=== PATIENT | female | born 1945 | race Caucasian/White ===

== ENCOUNTER 2018-10-09 13:18 | Inpatient (IN) ==
--- NOTE | 2018-10-09 14:20 | EKG Report ---
Test Performed on : 10/09/2018 1:37:23 PM Test Reason : confusion Blood Pressure : / mmHG Vent. Rate : 076 BPM Atrial Rate : 076 BPM P-R Int : 162 ms QRS Dur : 084 ms QT Int : 374 ms P-R-T Axes : 065 038 043 degrees QTc Int : 420 ms Normal sinus rhythm. Normal ECG No previous ECGs available Unconfirmed Result
[2018-10-09 14:32] LABS: BASO# 0.03 X1000 (0.0-0.2); BASO% 0.3 % (0.0-0.8); EOS# 0.01 X1000 (0.0-0.7); EOS% 0.1 % (0.0-10.0); HEMATOCRIT 42.3 % (37.0-47.0); IMM GRAN# 0.02 X1000 (0.0-0.04); IMM GRAN% 0.2 % (0.0-0.5); LYMPH# 2.19 X1000 (1.2-3.4); LYMPH% 21.1 % (20.5-51.1); MCHC 33.1 g/dL (33-37); MCV 87.6 FL (81-99); MONO# 0.69 X1000 (0.11-0.59); MONO% 6.6 % (1.7-9.3); MPV 9.9 FL (7.4-10.4); NEUT# 7.46 X1000 (1.4-6.5); NEUT% 71.7 % (42.2-75.2); PLT 345 X1000 (130-400); RBC 4.83 XMIL (4.2-5.4); RDW 12.4 % (11.5-14.5)
--- NOTE | 2018-10-09 14:51 | Diag Imaging Result Doc PS360 ---
EXAM: CT HEAD W/O CONTRAST 10/09/2018 HISTORY: AMS TECHNIQUE: This exam was performed using automated exposure control, adjustment of mA or kV according to patient size, and/or use of iterative reconstruction technique. COMMENT: There is apparent vasogenic edema in the posterior hemispheres bilaterally but particularly in the posterior parietal lobe on the right which may be associated with a rounded ringlike lesion best seen on image 26 and measuring 16 mm in diameter. This may represent metastatic disease and further evaluation with contrast-enhanced CT and/or MRI is recommended. IMPRESSION: Probable metastatic disease. Electronically signed by Francisco King 10/09/2018 2:49 PM
--- NOTE | 2018-10-09 14:56 | Diag Imaging Result Doc PS360 ---
EXAM: CHEST-2 VIEWS 10/09/2018 HISTORY: confusion TECHNIQUE: AP and lateral chest COMMENT: There is apparent blunting of the posterior right costophrenic angle. The lungs appear to be clear and the heart and pulmonary vascularity are within normal limits. The regional skeleton appears to be intact. IMPRESSION: Questionable right pleural effusion. Otherwise no evidence of acute disease. Electronically signed by Francisco King 10/09/2018 2:53 PM
[2018-10-09 15:00] LABS: AGAP 13; ALB/GLOB RATIO 1.4; ALBUMIN 4.1 g/dL (3.5-5.0); ALKALINE PHOSPHATASE 62 U/L (32-104); BUN 15 mg/dL (8-22); CALCIUM 8.8 mg/dL (8.8-10.2); CHLORIDE 96 mmol/L (98-107); COSMO 273; CREATININE 0.8 mg/dL (0.5-0.9); ESTIMATED GFR > 60; GLUCOSE 102 mg/dL (70-104); GOT 14 U/L (10-30); GPT 10 U/L (10-36); POTASSIUM 4.1 mmol/L (3.5-5.1); SODIUM 136 mmol/L (136-145); TCO2 27 mmol/L (25-35); TOTAL BILIRUBIN 0.55 mg/dL (0.20-1.00)
[2018-10-09 15:53] LABS: URINE SOURCE CLEAN CATCH
[2018-10-09 15:59] LABS: BILIRUBIN URINE NEGATIVE (NEGATIVE); BLOOD URINE NEGATIVE (NEGATIVE); COLOR YELLOW; GLUCOSE URINE NEGATIVE (NEGATIVE); KETONE URINE 10 mg/dL (NEGATIVE); LEUKOCYTES URINE SMALL (NEGATIVE); NITRITE URINE NEGATIVE (NEGATIVE); PH URINE 6.5; PROTEIN URINE TRACE mg/dL (NEGATIVE); SP GRAVITY URINE 1.024; TURBIDITY URINE CLEAR (CLEAR); UR EPITHELIAL CELLS <10 /HPF (<10); URINE BACTERIA NEGATIVE /HPF; URINE RBC <10 /HPF (<10); URINE WBC <10 /HPF (<10); UROBILINOGEN URINE NORMAL (NORMAL)
[2018-10-09 16:15] LABS: UR AMPHETAMINES QUAL NONE DETECTED (NONE DETECT); UR BARBITUATES QUAL NONE DETECTED (NONE DETECT); UR BENZODIAZEPIN QUAL NONE DETECTED (NONE DETECT); UR CANNABINOIDS QUAL NONE DETECTED (NONE DETECT); UR COCAINE QUAL NONE DETECTED (NONE DETECT); UR METHADONE QUAL NONE DETECTED (NONE DETECT); UR OPIATES QUAL NONE DETECTED (NONE DETECT); UR OXYCODONE QUAL NONE DETECTED (NONE DETECT); UR PCP QUAL NONE DETECTED (NONE DETECT)
--- NOTE | 2018-10-09 16:23 | PROVIDER DOCUMENTATION ---
This chart was entered by Miladis Barreto Scribe, acting as scribe for Deep Parker MD. HPI-Neurological Disorder - General Chief Complaint: Altered Mental Status Stated Complaint: CONFUSED,BALL,LEFT FOOT NUMB Time Seen by Provider: 10/09/18 13:26 Source: patient, family (sisters and daughter at bedside) Allergies/Adverse Reactions: Patient Allergies Allergy/AdvReac Type Severity Reaction Status Date / Time No Known Allergies Allergy Verified 10/09/18 14:22 Home Medications: Home Medication List Medication Instructions Recorded Confirmed Last Taken Type NK [No Home Medications] 10/09/18 10/09/18 Unknown History - History of Present Illness-Neuro Nature of Presenting Problem: 73 yowf presents to the ed with multiple complaints. pt sts 1 week she has noted a BALL and confusion when trying to drive home from work some days. pt sts once she found her way home, her home looked unfamiliar to her. for about 3 weeks pt has had a sinus infection with sob, fever/chills thoracic back pain and left foot numbness which sometimes drags with ambulation. pt on exam is soft spoken and has no confusion now. pt sts confusion is mostly when driving or locations like home. pt stills knows herself and family at all times. Headache Location: reports: occipital, parietal Onset/Duration: reports: 1 week ago Timing: reports: gone now, intermittent Context: reports: fever, other (confusion while driving). denies: impaired speech, facial droop Character of Altered Mental Status: reports: disoriented, confused Any recent trauma/injury?: reports: none Character of Deficits: reports: new weakness (left foot) New weakness or altered sensation location:: reports: other (left foot numbness and mild weakness) Cognitive Baseline: alert, oriented x3 Gait Baseline: uses a cane Associated Symptoms: reports: short of breath, headache, confusion, neck/back pain (neck pain), fatigue, numbness in legs/feet (left foot), weakness (left foot), other (thoracic back pain and neck pain). denies: fainting, dizziness, chest pain, slurred speech Similar Symptoms Previously?: No Recently seen or treated by another doctor?: No Review of Systems - Adult - REVIEW OF SYSTEMS - ADULT Constitutional: reports: see HPI, chills, fever, fatique Eyes: reports: no symptoms reported Ears, Nose, Mouth & Throat: reports: no symptoms reported Cardiovascular: denies: chest pain, palpitations, syncope Respiratory: denies: cough, pleurisy, shortness of breath, wheezing Gastrointestinal: denies: abdominal pain, diarrhea, nausea, vomiting Genitourinary: reports: no symptoms reported Musculoskeletal: reports: see HPI, back pain (thoracic), neck pain Integumentary: reports: no symptoms reported Neurological: reports: see HPI, headache/migraines, numbness (left foot), other (confusion). denies: ataxia, dizziness/vertigo, seizure, slurred speech Psychiatric: reports: no symptoms reported Endocrine: reports: no symptoms reported Hematologic/Lymphatic: reports: no symptoms reported Allergic/Immunologic: reports: no symptoms reported All Other Systems: Reviewed and Negative Past History - Adult - PAST MEDICAL HISTORY-ADULT Review of Records: reports: Old Records Reviewed, Nursing Assessment Review, Medications Reviewed, Social history reviewed & non-contributory. Major Childhood Illnesses: reports: denies history Cardiovascular: reports: denies history Respiratory: reports: denies history Gastrointestinal: reports: denies history Obstetrical/Gynecological: reports: denies history Genitourinary: reports: denies history Musculoskeletal: reports: denies history Hand Dominance: Right Handed Neurological: reports: denies history Psychiatric: reports: denies history Endocrine/Immune: reports: denies history Other Conditions: reports: denies history - PRIOR SURGERIES/PROCEDURES Surgical/Procedure History: reports: hysterectomy - IMMUNIZATION STATUS Childhood Immunizations: See Nurse Assessment Flu Vaccine: See Nurse Assessment - FAMILY HISTORY Family History: reviewed, not pertinent - SOCIAL HISTORY Smoking: quit greater than 1 year Substance Use: none/never Alcohol Use Frequency: never Living Situation: family Physical Exam- Neurological - Physical Exam-Neuro Initial Vital Signs Reviewed: Yes General Appearance: appears well, alert, no apparent distress Eye Exam: bilateral eye: normal inspection, PERRL, EOMI HENMT: moist mucous membranes, normal ENT inspection Head Injury: no evidence of injury Neck: non-tender, full range of motion, supple, normal inspection Respiratory: chest non-tender, lungs clear, normal breath sounds Cardiovascular: normal peripheral pulses, regular rate, rhythm Abdominal Exam: normal bowel sounds, non tender, soft Lymphatic: no adenopathy Extremity: normal range of motion, non-tender, normal gait, normal inspection, no pedal edema, no calf tenderness, normal capillary refill, other (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 negative: aphasia, facial droop Integumentary: normal color, normal turgor, warm/dry Psych/Mental Status: normal mood/affect, normal thought content, normal thought process, oriented x 3 - Glascow Coma Scale Best Eye Response: (4) open spontaneously Best Verbal Response: (5) oriented Best Motor Response: (6) obeys commands Total Glascow Score: 15 Progress - PLAN OF CARE/RESULTS Progress/Plan/Lab Results: Vital Signs - 8 hr 10/09/18 13:20 10/09/18 13:39 10/09/18 13:40 Temperature 98.8 F Pulse Rate 85 75 77 Respiratory Rate 18 25 H 22 Blood Pressure 158/90 O2 Sat by Pulse Oximetry 95 97 10/09/18 13:48 10/09/18 13:50 10/09/18 14:00 Temperature Pulse Rate 79 75 77 Respiratory Rate 15 21 19 Blood Pressure 151/92 O2 Sat by Pulse Oximetry 97 98 95 10/09/18 14:03 10/09/18 14:10 10/09/18 14:50 Temperature Pulse Rate 75 75 74 Respiratory Rate 22 21 16 Blood Pressure 133/82 O2 Sat by Pulse Oximetry 97 98 96 10/09/18 15:00 10/09/18 15:13 Temperature Pulse Rate 78 Respiratory Rate 16 Blood Pressure 133/82 O2 Sat by Pulse Oximetry 97 Laboratory Results - last 24 hr 10/09/18 10/09/18 10/09/18 13:46 14:19 14:19 WBC 10.40 RBC 4.83 Hgb 14.0 Hct 42.3 MCV 87.6 MCH 29.0 MCHC 33.1 RDW Std Deviation 12.4 Plt Count 345 MPV 9.9 Immature Gran % (Auto) 0.2 Neut % (Auto) 71.7 Lymph % (Auto) 21.1 Pettis % (Auto) 6.6 Eos % (Auto) 0.1 Baso % (Auto) 0.3 Immature Gran # (Auto) 0.02 Neut # (Auto) 7.46 H Lymph # (Auto) 2.19 Pettis # (Auto) 0.69 H Eos # (Auto) 0.01 Baso # (Auto) 0.03 Sodium 136 Potassium 4.1 Chloride 96 L Carbon Dioxide 27 Anion Gap 13 BUN 15 Creatinine 0.8 Estimated GFR/1.73 m2 > 60 BUN/Creatinine Ratio 19 Glucose 102 POC Glucose 94 Calculated Osmolality 273 Calcium 8.8 Total Bilirubin 0.55 AST 14 ALT 10 Alkaline Phosphatase 62 Total Protein 7.0 Albumin 4.1 Globulin 2.9 Albumin/Globulin Ratio 1.4 Urine Source Urine Color Urine Turbidity Urine pH Ur Specific Williams Urine Protein Ur Glucose (Stick) Ur Ketones (Stick) Urine Blood Urine Nitrite Urine Bilirubin Urobilinogen Dipstick Urine Leukocytes Urine WBC (Auto) Urine RBC (Auto) U Epithel Cells (Auto) Urine Bacteria (Auto) Urine Opiates Screen Ur Oxycodone Screen Ur Methadone, Qual Ur Barbiturates Screen Ur Phencyclidine Scrn Ur Amphetamines Screen U Benzodiazepines Scrn Urine Cocaine Screen U Cannabinoids Screen 10/09/18 10/09/18 15:33 15:33 WBC RBC Hgb Hct MCV MCH MCHC RDW Std Deviation Plt Count MPV Immature Gran % (Auto) Neut % (Auto) Lymph % (Auto) Pettis % (Auto) Eos % (Auto) Baso % (Auto) Immature Gran # (Auto) Neut # (Auto) Lymph # (Auto) Pettis # (Auto) Eos # (Auto) Baso # (Auto) Sodium Potassium Chloride Carbon Dioxide Anion Gap BUN Creatinine Estimated GFR/1.73 m2 BUN/Creatinine Ratio Glucose POC Glucose Calculated Osmolality Calcium Total Bilirubin AST ALT Alkaline Phosphatase Total Protein Albumin Globulin Albumin/Globulin Ratio Urine Source CLEAN CATCH Urine Color YELLOW Urine Turbidity CLEAR Urine pH 6.5 Ur Specific Williams 1.024 Urine Protein TRACE A Ur Glucose (Stick) NEGATIVE Ur Ketones (Stick) 10 A Urine Blood NEGATIVE Urine Nitrite NEGATIVE Urine Bilirubin NEGATIVE Urobilinogen Dipstick NORMAL Urine Leukocytes SMALL A Urine WBC (Auto) <10 Urine RBC (Auto) <10 U Epithel Cells (Auto) <10 Urine Bacteria (Auto) NEGATIVE Urine Opiates Screen NONE DETECTED Ur Oxycodone Screen NONE DETECTED Ur Methadone, Qual NONE DETECTED Ur Barbiturates Screen NONE DETECTED Ur Phencyclidine Scrn NONE DETECTED Ur Amphetamines Screen NONE DETECTED U Benzodiazepines Scrn NONE DETECTED Urine Cocaine Screen NONE DETECTED U Cannabinoids Screen NONE DETECTED Orders Category Date Time Status Nursing- Obtain EKG ONCE Care 10/09/18 14:10 Active CHEST-2 VIEWS [RAD] Stat Exams 10/09/18 14:[address] HEAD W/O CONTRAST [CT] Stat Exams 10/09/18 13:39 Completed CBC WITH DIFF [HEME] Stat Lab 10/09/18 14:19 Completed COMPREHENSIVE METABOLIC PANEL [CHEM] Stat Lab 10/09/18 14:19 Completed URINALYSIS W/POSS RFLX CULT [URINALYSIS] Stat Lab 10/09/18 15:33 Completed URINE CULTURE [RM] Routine Lab 10/09/18 16:13 Received URINE DRUG SCREEN Stat Lab 10/09/18 15:33 Completed EKG [EKG] Stat Ther 10/09/18 14:10 Draft Result Diagrams: 10/09/18 14:19 10/09/18 14:19 - REASSESSMENT Reassessment #1 Time Reassessed: 15:05 (pt is resting in bed with family at [facility]) Status: unchanged Reassessment Comment: dr parker is speaking woith pt and family - EKG 1 Time of EKG reading by physician:: 13:37 EKG Read and Signed by:: Deep Parker EKG Interpretation (*Must complete 3 of following elements*): Normal Rate: 76 Rhythm: nsr [place]: normal QRS: normal MI Interval: normal ST Wave: normal - XRAY 1 XRAY: Bilateral XRAY Study: Chest Impression: See EMR Report (EXAM: CHEST-2 VIEWS 10/09/2018 HISTORY: confusion TECHNIQUE: AP and lateral chest COMMENT: There is apparent blunting of the posterior right costophrenic angle. The lungs appear to be clear and the heart and pulmonary vascularity are within normal limits. The regional skeleton appears to be intact. IMPRESSION: Questionable right pleural effusion. Otherwise no evidence of acute disease. Electronically signed by Francisco King 10/09/2018 2:53 PM 10/09/18 [id number] Interpreting Physician: Francisco King MD Dictated Date/Time: 10/09/18 1452 cc: Deep Parker MD; None,PCP) - CT/MRI 1 CT Study: Head Impression: See EMR Report (EXAM: CT HEAD W/O CONTRAST 10/09/2018 HISTORY: AMS TECHNIQUE: This exam was performed using automated exposure control, adjustment of mA or kV according to patient size, and/or use of iterative reconstruction technique. COMMENT: There is apparent vasogenic edema in the posterior hemispheres bilaterally but particularly in the posterior parietal lobe on the right which may be associated with a rounded ringlike lesion best seen on image 26 and measuring 16 mm in diameter. This may represent metastatic disease and fu rther evaluation with contrast-enhanced CT and/or MRI is recommended. IMPRESSION: Probable metastatic disease. Electronically signed by Francisco King 10/09/2018 2:49 PM 10/09/18 1449 Interpreting Physician: Francisco King MD Dictated Date/Time: 10/09/18 1447 cc: Deep Parker MD; Sarmad Lanier MD) - CONSULTS/PCP/HOSPITALIST Notification #1 *Consult/PCP/Hospitalist*: [employer] with hospitalist-[facility] Time Discussed: 16:21 Reason/Comments: lesion on brain with confusion Consult Disposition: Admit Departure - Departure Date of Disposition Decision: 10/09/18 Time of Disposition Decision: 16:00 DIAGNOSIS: Metastatic cancer to brain Disposition: ADMITTED INPATIENT 09 Certified Medical Emergency: Emergent Condition: Stable Referrals and Follow-Ups: Sarmad Lanier MD [ACTIVE STAFF PHYSICIAN] - - Critical Care Note This patient required my direct & personal management of CC.: No Attestation - Physician/ IRVIN Attestation Patient care was provided by Advanced Practice Provider:: No The physician spent face to face time with patient:: Yes Advanced Practice Provider documentation review:: Supervising physician onsite and consulted in the evaluation and care of this patient. The physician did have a face to face encounter with the patient. - NIH Stroke Scale NIH Type: Initial Evaluation Level of Consciousness: 0-Alert LOC Questions (ask month and age): 0-Answers Both Correctly LOC Commands (ask to open & close eyes;make a fist, let go): 0-Obeys Both Cor rectly Best Gaze (horizontal eye movement): 0-Normal Visual (use finger movement, counting or visual threat): 0-No Visual Loss Facial Palsy (show teeth or raise eyebrows & close eyes tght: 0-Symmetrical Movement Motor Function-left arm: 0-Normal Motor Function-right arm: 0-Normal Motor Function-left le-Normal Motor Function-right le-Normal Limb Ataxia(iendya-rnfp-hkadvn, or heel to metcalf): 0-No Ataxia Sensory(pin prick to face,arms,trunk,legs-compare side/side): 0-No Ataxia Best Language(name item/read sentence.Ex-Down to Earth): 0-No Aphasia Dysarthria(Pt read words or say words Ex.Mama,Tip-Top,Thanks: 0-Normal Articulation Modified Crosby Score Criteria: 1-no significant disability despite symptoms This chart was documented by the indicated scribe, (Miladis Barreto Scribe) and accurately reflects the services I performed and decisions made by me, Deep Parker MD, as attested by the provider's signature.
[2018-10-09] MEDS ORDERED: MORPHINE IV ONE (16:56)
[2018-10-09] MEDS ORDERED: ZOFRAN IV PRN (17:37)
[2018-10-09] MEDS ORDERED: MORPHINE IV PRN (17:41)
[2018-10-09] MEDS ORDERED: DECADRON IV ONE (18:22)
--- NOTE | 2018-10-09 18:43 | HISTORY AND PHYSICAL ---
PRIMARY CARE PHYSICIAN: None. CHIEF COMPLAINT: Altered mental status and left leg weakness. HISTORY OF PRESENT ILLNESS: Ms. Harrison is a 73-year-old female who states that yesterday on her way home, she became disoriented and got lost while driving. She states she has been having headaches and left foot weakness. States she has been very unsteady and dizzy, feels like she is going to lose her balance. The patient admits that 3 weeks ago she was treated for a sinus infection by a nurse practitioner for Dr. Prescott at [facility]. They did a chest x-ray, and the chest x-ray did not show pneumonia; however, they did a CT scan and it did show pneumonia. The patient was at that time having severe temperatures for 8 days, body aches and nasal symptoms. They prescribed her cefdinir at that time. She took the medication; however, she did develop a rash across her chest area and under the breast while on the medication. The patient states she thought this was from her fevers. The patient states that these headaches, dizziness and loss of balance started 2 days ago. The patient is complaining of headache at the present time and the nurse in ER gave the patient morphine for the headache. The patient denies any dizziness, nausea or vomiting at present time. Denies any other pain at present time. No other symptoms are noted. PAST MEDICAL HISTORY: The patient denies any past medical history. PAST SURGICAL HISTORY: Hysterectomy. FAMILY HISTORY: Mother from a malignant brain tumor. Father at the age of 58 from an AR. SOCIAL HISTORY: The patient lives in the [place] area. 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 She states that she quit smoking 13 months ago. She denies any alcohol or drug abuse. ALLERGIES: Cefdinir. MEDICATIONS: Aspirin 81 mg p.o. daily. LABORATORY DATA: White blood cell count 10.4, hemoglobin 14.0, hematocrit 42.3, platelet count 345,000. Sodium 136, potassium 4.1, chloride 96, carbon dioxide 27, BUN 15, creatinine 0.8, estimated GFR is greater than 60, glucose is 102, calcium 8.8, bilirubin 0.55, AST 14, ALT 10. Urinalysis performed showed trace amount of protein, small amount of ketones and a small amount of leukocytes. Urine drug screen is negative. DIAGNOSTIC DATA: Chest x-ray performed showed questionable right pleural effusion, otherwise there is no evidence of acute disease. Head CT was performed and showed a ring-like lesion. This may represent metastatic disease, and further evaluation with MRI is recommended. REVIEW OF SYSTEMS: Twelve-point review of systems was performed. All are negative except what is stated above in HPI. PHYSICAL EXAMINATION: VITAL SIGNS: Temperature 98.8 degrees, pulse rate 79, blood pressure 133/82, O2 saturation 97% on room air. Respiratory rate 22. GENERAL: This is a 73-year-old very pleasant female who is well nourished and well developed, in no acute distress at the present time, lying on the ER stretcher. HEENT: Atraumatic, normocephalic. Pupils equal, round and reactive to light. Mucous membranes are moist. No dentition. NECK: Supple. No lymphadenopathy. Trachea is midline. No JVD. CARDIOVASCULAR: Regular rate and rhythm. No murmurs, gallops or rubs appreciated. RESPIRATORY: Lung sounds are clear, with equal chest excursion. Respirations are nonlabored, with no accessory muscle usage. GASTROINTESTINAL: Abdomen is soft, nontender, nondistended. Bowel sounds are present x4. NEUROLOGIC: The patient is awake, alert and oriented x4. Cranial nerves intact. Follows all commands. Moves all extremities. MUSCULOSKELETAL: Full distal strength noted. No deformities or abnormalities. EXTREMITIES: No clubbing, cyanosis or edema noted. DP and PT pulses are present and palpable. SKIN: Warm, dry, and intact. No rashes or bruises. Diaphoresis noted. ASSESSMENT: 1. Altered mental status. 2. 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 3. Left leg weakness. 4. Headaches. PLAN: We will admit this patient to the medical floor. We will perform a CT of the chest, abdomen and pelvis with contrast. We will perform an MRI of the brain. Repeat labs in the a.m. Treat her pain with prn pain medications. Start this patient on a regular diet and observe this patient closely with reed cleaner. Dictated by NICHOLAS Levy for Stephen Rodriguez MD cc: Stephen Rodriguez MD [facility]
--- NOTE | 2018-10-09 18:56 | HISTORY AND PHYSICAL ---
ADDENDUM REPORT: I saw Ms. Harrison today in the emergency room. Two sisters and a daughter were at the bedside at the time of the encounter Ms. Harrison presents because of some memory impairment and frequent disorientation, which acutely got worse yesterday when she finished work. She could not first of all get her way back home, and when she did she could not recognize the surrounding houses at her neighborhood. Ms. Harrison also has been complaining of subacute headaches. They are usually worse early in the morning. She also says that occasionally during the day when she stands up it gets worse. She was treated for sinusitis about 1 week ago. However, the pain continues. She also refers that the left leg has been dragging lately. Upon presentation, she was evaluated in the emergency room. So far, her labs look fine, both CBC and chemistry. A CT scan of the head shows probable metastatic disease. The chest x-ray was unremarkable. On the physical exam, she does have a remarkable left-side hemiparesis with a power of about 4- both up and down while the right side is normal. Sensation to pinprick is also slightly reduced on the left side. The patient has Babinski positive with the big toe upgoing on the left side and reflexes seem to be mildly exaggerated on the left side as well. ASSESSMENT AND PLAN: 1. Right-sided brain mass associated with vasogenic edema. This is concerning for a malignancy. We are going to start the patient on 10 mg of IV Decadron and stat and then 4 mg every 6 hours. We will get will get a CT scan of the chest, abdomen, and pelvis to rule out any primary source. We will get both Neurology and Hematology/Oncology to evaluate the patient as well. 2. 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 3. Remote history of tobacco use. Patient stopped smoking about 1 year ago. For now, we are going to do a CT scan of the chest, abdomen, and pelvis with contrast to look for a primary source of the possible malignancy. We will also get an MRI of the brain tomorrow. We will start the patient on Decadron. We will observe her for seizure precautions, and we will get subspecialties (Neurology and Oncology) to see her. Please refer to the details of the History and Physical, which have been dictated in the chart. cc: Stephen Rodriguez MD MTDD
--- NOTE | 2018-10-09 19:46 | Diag Imaging Result Doc PS360 ---
EXAM: CT THORAX/ABD/PELVIS W/CON 10/09/2018 HISTORY: brain lesion with possible mets TECHNIQUE: This exam was performed using automated exposure control, adjustment of mA or kV according to patient size, and/or use of iterative reconstruction technique. COMMENT: Thorax: There is atelectasis or fibrosis in the posterior costophrenic sulci posteriorly bilaterally. There is apical pleural thickening bilaterally. There are calcified nodes in the subcarina. There is a hiatal hernia. There are calcifications in the aortic arch. There is extensive coronary calcification particularly in the left anterior descending artery. There is no evidence of acute bony abnormality. ABDOMEN: There are number of splenules near the splenic hilus. The distal stomach is not well distended and no oral contrast was administered. The possibility of mucosal thickening cannot be excluded. There are some atherosclerotic calcifications present in the aorta. There is no evidence of aneurysm. The mesenteric and renal arteries are patent. The pancreas is unremarkable. There is no evidence of nephrolithiasis or hydronephrosis. There may be some very small gallstones layering dependently in the gallbladder. There is no evidence of renal mass. The adrenal glands are not enlarged. The liver contains a cyst posteriorly in the right lobe but is otherwise unremarkable. There is no evidence of significant adenopathy. Pelvis: There is diverticulosis in the sigmoid colon without evidence of acute diverticulitis. There has been hysterectomy. There is no evidence of appendicitis. There is stool and gas in the current rectum. The urinary bladder is not distended. There are degenerative changes in the symphysis pubis. There is vacuum disc phenomenon at L5-S1, L4-5, L3-4 and degenerative changes are also present at L2-3 and L1-2. IMPRESSION: Cholelithiasis. Hiatal hernia. Granulomatous changes and atherosclerosis. Electronically signed by Francisco King 10/09/2018 7:43 PM
[2018-10-09] MEDS: DECADRON IV SCH ×2 (20:12→20:16)
[2018-10-10] MEDS: DECADRON IV SCH ×4 (01:32→22:00)
[2018-10-10 07:07] LABS: HEMATOCRIT 41.9 % (37.0-47.0); LYMPH# 0.97 X1000 (1.2-3.4); LYMPH% 10.7 % (20.5-51.1); MCH 28.9 PG (27-31); MCHC 33.4 g/dL (33-37); MCV 86.4 FL (81-99); MONO# 0.09 X1000 (0.11-0.59); MPV 10.1 FL (7.4-10.4); NEUT# 7.98 X1000 (1.4-6.5); NEUT% 88.3 % (42.2-75.2); PLT 362 X1000 (130-400); RBC 4.85 XMIL (4.2-5.4); RDW 12.1 % (11.5-14.5); WBC 9.04 X1000 (4.8-10.8)
[2018-10-10 07:12] LABS: AGAP 15; BUN 16 mg/dL (8-22); CHLORIDE 97 mmol/L (98-107); COSMO 271; CREATININE 0.7 mg/dL (0.5-0.9); ESTIMATED GFR > 60; GLUCOSE 128 mg/dL (70-104); SODIUM 134 mmol/L (136-145); TCO2 22 mmol/L (25-35)
[2018-10-10 08:08] LABS: LYMPHS 12 % (21-51); MONO 2 % (1-9); SEGS 86 % (42-75)
[2018-10-10] MEDS: PRILOSEC PO SCH (09:53)
--- NOTE | 2018-10-10 13:17 | PROGRESS NOTE ---
DATE: 10/10/2018 SUBJECTIVE: This morning Ms. Harrison refers to be doing well. She said she did not have much headaches as did before and that her left side weakness also seems to be getting a little better. OBJECTIVE: Vital signs: Blood pressure is 121/66, pulse of 78, respiration is 16, temperature 98.9 degrees. General: Ms. Harrison is a 73-year-old female. She is in bed, no distress. HEENT: Mucosa is pink and moist. Anicteric. Acyanotic. Neck: Supple. Chest: Good air entry bilateral. There were no crepitations, no rhonchi. Cardiovascular: Regular rate and rhythm. No murmurs, no rubs, no gallops. Central nervous system: Patient is awake, alert, oriented. There is still some mild weakness on the left side with hyperreflexia and positive Babinski. LABORATORY DATA: CBC is completely normal. Chemistry is also reviewed. Sodium is 134. Rest of chemistry is unremarkable. So far, urine culture is negative. ASSESSMENT: 1. Right-sided brain mass of unclear etiology, associated with vasogenic edema. Patient is currently on Decadron therapy. We are pending an MRI on Friday. So far, CT scan of the chest, abdomen, and pelvis has been unremarkable for any mass. 2. Left-sided hemiparesis with positive Babinski secondary to the right-sided brain mass. 3. Remote history of tobacco use. 4. Mild clinical dehydration. Patient is advised on oral enteral hydration. PLAN: In general, I think Ms. Harrison is fairly stable. We are going to continue with the steroids. Await the MRI on Friday. The patient is also pending consultation from Neurology as well as Heme- Onc. cc: Stephen Rodriguez MD
[2018-10-10] MEDS: TYLENOL PO PRN (22:31)
[2018-10-11] MEDS: DECADRON IV SCH ×2 (03:08→09:24)
[2018-10-11] MEDS: TYLENOL PO PRN (09:23)
[2018-10-11] MEDS: PRILOSEC PO SCH (09:24)
[2018-10-11 11:44] VITALS: BP 134/27
--- NOTE | 2018-10-11 14:35 | DISCHARGE SUMMARY ---
ADMISSION DATE: 10/09/2018 DISCHARGE DATE: 10/11/2018 DISPOSITION: [facility]. REASON FOR TRANSFER: For higher level of care and neurosurgical evaluation. CONSULTATION DURING THIS ADMISSION: Hematology/oncology was consulted. However, the patient was not seen by Dr. Harvey before she left. IMAGING STUDIES OF SIGNIFICANCE: 1. A CT scan of the head was done which showed probable metastatic brain disease. 2. A chest x-ray was done which showed questionable right pleural effusion. 3. A CT scan of the chest, abdomen, and pelvis only showed cholelithiasis, hiatal hernia, atherosclerosis, but no mass. ADMISSION DIAGNOSES: 1. Altered mental status. 2. 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 3. Left leg weakness. 4. Headaches. DIAGNOSES AT THE TIME OF TRANSFER: 1. Right-sided brain mass of unclear etiology, associated with vasogenic edema. 2. Subacute headaches secondary to brain mass. 3. Left-sided hemiparesis with positive Babinski secondary to right-sided brain mass. 4. Remote history of tobacco use. 5. Mild clinical volume depletion. MEDICATIONS AT THE TIME OF TRANSFER: 1. The patient was on Decadron 4 mg IV q.6. 2. Morphine 2 mg IV q.3 p.r.n. 3. Omeprazole 40 mg p.o. daily. PRESENTING COMPLAINT: Altered mental status and leg weakness. HISTORY OF PRESENTING COMPLAINT: Ms. Harrison is a 73-year-old, female with no major medical complaints or illness except for some remote history of smoking. Comes to the emergency department because of some memory issues for the past 3 weeks as well as weakness, dragging the left foot. She did also complain of some headaches. Upon presenting to the emergency department, she was evaluated and a CT scan of the brain did show suspicion of metastatic disease. Ms Harrison was subsequently admitted for medical care. HOSPITAL COURSE: Ms Harrison was admitted to the medical floor. Was started on Decadron. The following day, her headaches got improved. However, she did still have some mild residual left side hemiparesis. A CT scan of the chest, abdomen, and pelvis did not show any possible source of this metastatic brain mass so there was the concern if it was a primary [employer] malignancy. Because, at some point, we knew Ms. Harrison would need a neurosurgical consult, we reached out to [facility] and I was able to talk with Dr. Saravia who recommended that we needed an MRI but we cannot do an MRI over the weekend so Ms Harrison will be sent to [place] for neurosurgery evaluation and continue the care. The hospitalist, Dr. Gary, will be the one accepting. This plan was discussed with Ms. Harrison and the family members were at the bedside at the time of the encounter. They were very grateful. Time spent for discharge was 37 minutes. cc: Stephen Rodriguez MD
== END 2018-10-11 13:44 | disposition short-term general hospital (02) | DRG 70 ==
LOC: SUPCPDRO → ED 13:18 → 4N 17:47
PROVIDERS: ATTEND Internal Medicine
CPT/HCPCS: 70450; 71020; 71046; 71260; 74177; 80048; 80053; 80101; 80301; 80307; 80324; 80345; 80346; 80353; 80358; 80361; 80365; 81001; 82378; 82948; 83992; 85025; 86140; 87088; 93005; A9270; G0431; G0434; G0479; G0480; J1100; J2270; Q9967; XXXXX